=== PATIENT | female | born 1995 | race Caucasian/White ===

== ENCOUNTER 2018-04-06 00:31 | Emergency (ER) | payer OTHER ==
[2018-04-06 00:37] VITALS: RESP 20
[2018-04-06] MEDS ORDERED: KETOROLAC TROMETHAMINE 30 MG/ML SOL ONE (01:20)
[2018-04-06] MEDS: SODIUM CHLORIDE 0.9% 1000ML 1,000 ML IV ONE (01:20)
[2018-04-06] MEDS: KETOROLAC TROMETHAMINE 30 MG/ML SOL IV ONE (01:25)
[2018-04-06 01:29] LABS: HEMATOCRIT 39 % (35-47); HEMOGLOBIN 13.4 gm/dl (12.0-15.5); MEAN CORPUSCULAR HEMOGLOBIN 31.9 pg (27.0-32.0); MEAN CORPUSCULAR HGB CONC 34.8 gm/dl (32.0-36.0); MEAN CORPUSCULAR VOLUME 92 fL (81-99)
[2018-04-06 01:40] LABS: CALCIUM 7.9 mg/dl (8.5-10.1); CARBON DIOXIDE 22.6 mEq/L (21-32); CREATININE 0.78 mg/dl (0.60-1.00); POTASSIUM 3.4 mMol/L (3.5-5.1)
[2018-04-06 02:01] LABS: BAND NEUTROPHILS % (MANUAL) 13 %; NEUTROPHILS % (MANUAL) 71 % (37-80)
[2018-04-06 02:02] LABS: BASOPHILS % (MANUAL) 0 % (0-3); EOSINOPHILS % (MANUAL) 0 % (0-9); LYMPHOCYTES % (MANUAL) 7 % (10-50); MONOCYTES % (MANUAL) 9 % (0-12); NORMAL RBCS PRESENT
[2018-04-06] MEDS ORDERED: CEFTRIAXONE 1 GM PDS ONE ×2 (02:05→02:10)
[2018-04-06] MEDS: CEFTRIAXONE 1 GM PDS 0.5 GM in SODIUM CHLORIDE 0.9% 50 ML 50 ML IV ONE (02:15)
[2018-04-06 02:27] VITALS: TEMP 99.7
[2018-04-06 02:35] VITALS: BP 102/65; PULSE 92; O2SAT 98
== END 2018-04-06 03:05 | disposition home or self-care (01) ==
LOC: ED 00:31
DX: N39.0 Urinary tract infection, site not specified (principal)
CPT/HCPCS: 36415; 80048; 85007; 85027; 87040; 96365; 96374; 99070; 99282; 99284; J0696; J1885